=== PATIENT | female | born 1945 | race Caucasian/White ===

== ENCOUNTER → 2018-06-25 | Outpatient (CLI) | payer MEDICARE, OTHER ==
[2018-06-25 14:08] LABS: Source, Urine Clean Catch
[2018-06-25 15:12] LABS: Bilirubin, Urine Neg (Neg); Blood, Urine 1+ (Neg); Glucose Qualitative, Urine Neg (Neg); Ketones, Urine Neg (Neg); Leukocyte Esterase, Urine 1+ (Neg); Nitrite, Urine Neg (Neg); Protein, Urine Neg (Neg); Urobilinogen, Urine 1+ (Normal); pH, Urine 6.5 (5.0-8.0)
[2018-06-25 15:21] LABS: Appearance, Urine Hazy (Clear); Color, Urine Yellow (P-Yellow)
[2018-06-25 15:23] LABS: Amorphous Mod (0-Heavy); Bacteria Few /hpf; Squamous Epithelial Cells Few /hpf (Few)
== END | disposition home or self-care (01) ==
LOC: LAB 09:39 → LAB SHORT 09:39
PROVIDERS: Obstetrics & Gynecology
DX: N39.45 Continuous leakage (principal)
CPT/HCPCS: 81001; 87086

== ENCOUNTER → 2018-08-07 | Outpatient (CLI) | payer MEDICARE, OTHER ==
[2018-08-07 10:42] LABS: Source, Urine Clean Catch
[2018-08-07 12:56] LABS: Bilirubin, Urine Neg (Neg); Blood, Urine 2+ (Neg); Glucose Qualitative, Urine Neg (Neg); Ketones, Urine Neg (Neg); Leukocyte Esterase, Urine 1+ (Neg); Nitrite, Urine Neg (Neg); Protein, Urine 1+ (Neg); Urobilinogen, Urine NORM (Normal)
[2018-08-07 13:19] LABS: Appearance, Urine Clear (Clear); Color, Urine Yellow (P-Yellow)
[2018-08-07 13:20] LABS: Bacteria Rare /hpf; Mucus Light (0-Heavy); Red Blood Cells, Urine 0-2 /hpf (0-2); Squamous Epithelial Cells Rare /hpf (Few); White Blood Cells, Urine 0-2 /hpf (0-5)
== END | disposition home or self-care (01) ==
LOC: LAB SHORT 10:02 → LAB 10:02
PROVIDERS: Obstetrics & Gynecology
DX: N39.45 Continuous leakage (principal)
CPT/HCPCS: 81001; 87086

== ENCOUNTER → 2018-09-22 | Outpatient (CLI) | payer MEDICARE, OTHER ==
[2018-09-22 15:21] LABS: Source, Urine Clean Catch
[2018-09-22 17:02] LABS: Bilirubin, Urine Neg (Neg); Blood, Urine 3+ (Neg); Glucose Qualitative, Urine Neg (Neg); Ketones, Urine Neg (Neg); Leukocyte Esterase, Urine 3+ (Neg); Nitrite, Urine Neg (Neg); Protein, Urine 2+ (Neg); Urobilinogen, Urine 1+ (Normal)
[2018-09-22 17:17] LABS: Appearance, Urine Hazy (Clear); Color, Urine Yellow (P-Yellow)
[2018-09-22 17:18] LABS: Bacteria Many /hpf; Squamous Epithelial Cells Few /hpf (Few); White Blood Cells, Urine TNTC /hpf (0-5)
== END | disposition home or self-care (01) ==
LOC: LAB 11:09 → LAB SHORT 11:09
PROVIDERS: Obstetrics & Gynecology
DX: R31.9 Hematuria, unspecified (principal)
CPT/HCPCS: 81001; 87077; 87086; 87186

== ENCOUNTER 2020-02-02 07:52 | Day surgery (SDC) | payer MEDICARE, OTHER ==
[~2020-02-02] VITALS: Ht 165.1 cm; Wt 89.3 kg
[~2020-02-02 07:52] MED LIST: ALLO100 PO; ASPIR 8181 MG PO; CALCIUM-MAGNES1 EAC9 PO; COENZYME Q10100 MG PO; Dyazide 37.5/251 EA PO; K-Dur10 MEQ PO; NEURONTIN300 MG PO; Norco 5-325 Ta1 EACH PO; OMEPRAZOLE20 M3 PO
--- NOTE | 2020-02-02 08:58 | NUR ---
Ambulatory in Day SurgeryPatient states colon prep results clear. History, Chart, Medications and Allergies reviewed before start of procedure.Lungs clear T/O to Auscultation. Patient confirms NPO status and agrees with scheduled surgery. Pre-Op teaching done. Pt verbalizes understanding. Patient States Post-Procedure ride home has been arranged.
--- NOTE | 2020-02-02 09:49 | NUR ---
02/02/20 0949 Yessenia Molina History, Chart, Medications and Allergies reviewed before start of procedure.Patient confirms NPO status and agrees with scheduled surgery.3-LEAD EKG REVIEWED WITH PHYSICIAN PRIOR TO START OF PROCEDURE.MONITOR INTACT WITH CONTINUOUS PULSE OXIMETRY AND INTERMITTENT BP.O2 VIA N/C INTACT THROUGHOUT SEDATION/PROCEDURE.
--- NOTE | 2020-02-02 11:33 | NUR ---
PT SLEEPY BUT ROUSEABLE ON ARRIVAL FROM SCOPE. PT PROVIDED JUICE. VSS. PT ON RA. PT FULLY AWAKE AND SISTER ENROUTE FOR RIDE HOME. VSS. Ambulatory in Day Surgery Discharge instructions reviewed with patient. Patient verbalizes understanding. Copy given to patient to take home. Patient States Post-Procedure ride home has been arranged. Discharged via wheelchair to private car for ride home.
== END 2020-02-02 22:38 | disposition home or self-care (01) ==
LOC: ORSCMMR 07:52 → ORD 09:30 → ORSCMMR 09:30
PROVIDERS: Internal Medicine Gastroenterology
PROC: 0DBH8ZX Excision of Cecum, Via Natural or Artificial Opening Endoscopic, Diagnostic (ICD-10-PCS; principal; 2020-02-02 09:30)
PROC: 0DBM8ZX Excision of Descending Colon, Via Natural or Artificial Opening Endoscopic, Diagnostic (ICD-10-PCS; principal; 2020-02-02 09:30)
PROC: 0DB78ZX Excision of Stomach, Pylorus, Via Natural or Artificial Opening Endoscopic, Diagnostic (ICD-10-PCS; principal; 2020-02-02 09:30)
PROC: 0DB48ZX Excision of Esophagogastric Junction, Via Natural or Artificial Opening Endoscopic, Diagnostic (ICD-10-PCS; principal; 2020-02-02 09:30)
PROC: 0D758ZZ Dilation of Esophagus, Via Natural or Artificial Opening Endoscopic (ICD-10-PCS; principal; 2020-02-02 09:30)
DX: R13.14 Dysphagia, pharyngoesophageal phase (principal); K29.70 Gastritis, unspecified, without bleeding; Z12.11 Encounter for screening for malignant neoplasm of colon; Z86.010 Personal history of colon polyps; D12.0 Benign neoplasm of cecum; D12.2 Benign neoplasm of ascending colon; D12.4 Benign neoplasm of descending colon; K57.30 Diverticulosis of large intestine without perforation or abscess without bleeding; K21.9 Gastro-esophageal reflux disease without esophagitis; G47.33 Obstructive sleep apnea (adult) (pediatric); Z87.891 Personal history of nicotine dependence; Z79.899 Other long term (current) drug therapy; Z79.82 Long term (current) use of aspirin
CPT/HCPCS: 88305; 88312; 88342; C1726; J2250; J3010; J7120

== ENCOUNTER → 2020-07-19 | Outpatient (CLI) | payer MEDICARE, OTHER | END | disposition home or self-care (01) | LOC: LAB SHORT 15:56 → LAB 15:56 | DX: D03.62 Melanoma in situ of left upper limb, including shoulder (principal) | CPT/HCPCS: 88305 ==

== ENCOUNTER → 2020-08-09 | Outpatient (CLI) | payer MEDICARE, OTHER | END | disposition home or self-care (01) | LOC: LAB 13:30 → LAB SHORT 13:30 | DX: D03.62 Melanoma in situ of left upper limb, including shoulder (principal) | CPT/HCPCS: 88305 ==

== ENCOUNTER → 2020-11-27 | Outpatient (CLI) | payer MEDICARE, OTHER | END | disposition home or self-care (01) | LOC: LAB 11:29 → LAB SHORT 11:29 | DX: D48.5 Neoplasm of uncertain behavior of skin (principal) | CPT/HCPCS: 88305 ==

== ENCOUNTER 2021-03-28 08:15 | Day surgery (SDC) | payer OTHER ==
[~2021-03-28 08:15] MED LIST changes: +ALEVAZOL56.7 G1 TOP; +PSEUDOEPHEDRINE30 M1 PO
--- NOTE | 2021-03-28 10:00 | NUR ---
03/28/21 Erlin Jeong BROUSSARD CATHETER PLACED AT START OF CASE AND REMOVED AT END WITH MINIMAL TO NO OUTPUT. PESSARY REMOVED BY MD AND PLACED IN STERILE WATER AND CONTAINER FOR DURATION OF CASE AND REPLACED BY MD AT END OF CASE.
== END 2021-03-28 11:00 | disposition home or self-care (01) ==
LOC: ORSCMMR 08:15 → ORD 09:30 → ORSCMMR 09:30
PROVIDERS: Obstetrics & Gynecology
PROC: 0UBC8ZX Excision of Cervix, Via Natural or Artificial Opening Endoscopic, Diagnostic (ICD-10-PCS; principal; 2021-03-28 09:30)
PROC: 0UB98ZX Excision of Uterus, Via Natural or Artificial Opening Endoscopic, Diagnostic (ICD-10-PCS; principal; 2021-03-28 09:30)
PROC: 0UDB8ZX Extraction of Endometrium, Via Natural or Artificial Opening Endoscopic, Diagnostic (ICD-10-PCS; principal; 2021-03-28 09:30)
DX: N84.0 Polyp of corpus uteri (principal); N84.1 Polyp of cervix uteri; N95.0 Postmenopausal bleeding; I10 Essential (primary) hypertension; G47.33 Obstructive sleep apnea (adult) (pediatric); Z87.891 Personal history of nicotine dependence; K21.9 Gastro-esophageal reflux disease without esophagitis; Z79.899 Other long term (current) drug therapy; Z79.82 Long term (current) use of aspirin
CPT/HCPCS: 88305; A9270; J1100; J2405; J2704; J3010; J7120

== ENCOUNTER 2023-03-31 06:08 | Day surgery (SDC) | payer OTHER ==
[~2023-03-31] VITALS: Ht 167.6 cm; Wt 89.7 kg
[~2023-03-31 06:08] MED LIST changes: +Lactated Ringer's 1,000 ML IV ONE
[2023-03-31] MEDS ORDERED: Vancomycin HCL 1,000 MG in NS 100 ML IV SCH (06:40)
[2023-03-31] MEDS ORDERED: OxyCODONE HCL 10 MG TABCR PO SCH (06:40)
[2023-03-31] MEDS ORDERED: CeFAZolin Sodium 2,000 MG in NS 50 ML IV SCH (06:40)
[2023-03-31] MEDS ORDERED: NS IV SCH (06:40)
[2023-03-31] MEDS ORDERED: TRANEXAMIC ACID IV SCH (06:40)
[2023-03-31] MEDS ORDERED: CefTRIAXone Sodium 2,000 MG in NS 100 ML IV SCH (06:40)
[2023-03-31] MEDS ORDERED: ROSU5 PO (06:41)
[2023-03-31] MEDS ORDERED: Lactated Ringer's 1,000 ML IV ONE ×2 (06:51→11:12)
[2023-03-31] MEDS ORDERED: EPINEPhrine HCl 1 MG/ML 1ML Amp ONE (07:08)
[2023-03-31] MEDS ORDERED: Ropivacaine 0.5% HCl/Pf 5 MG/ML 20ML VIAL ONE (07:09)
[2023-03-31] MEDS ORDERED: OxyCODONE HCL 10 MG TABCR ONE (07:13)
--- NOTE | 2023-03-31 07:23 | NUR ---
03/31/23 0723 Tonya Ha TIME OUT PERFORMED AT BEDSIDE WITH DR BARTH CONFIRMING PT IS HERE FOR L SHOULDER REPLACEMENT
[2023-03-31] MEDS ORDERED: Midazolam HCl 1MG / ML 2ML Vial ONE (07:27)
[2023-03-31] MEDS ORDERED: propofoL 20 ML IV ONE (07:47)
[2023-03-31] MEDS ORDERED: Rocuronium Bromide 10 MG/ML 5ML Injection IV ONE (07:48)
[2023-03-31] MEDS ORDERED: FentaNYL Citrate 50 MCG/ML 2 ML Injection ONE ×3 (07:48→11:18)
--- NOTE | 2023-03-31 08:30 | NUR ---
03/31/23 0830 Danielle Fernandez 20 MLS ROPIVACAINE 0.5% MIXED AND VERIFIED W/ 0.1ML EPI (1MG/ML), TO MAKE ROPIVACAINE 0.5% W/ EPI 1:200,000.
[2023-03-31] MEDS ORDERED: Dexamethasone Sod Phos 10 MG/ML 1ML VIAL ONE (08:44)
[2023-03-31] MEDS ORDERED: Bupivacaine 0.5% HCl 5 MG/ML 30MLVIAL ONE (08:45)
[2023-03-31] MEDS ORDERED: Ondansetron HCl 2 MG / ML 2ML Vial ONE (08:57)
[2023-03-31] MEDS ORDERED: Sugammadex Sodium 200 MG/2ML SDV (100 MG/ML) ONE (09:45)
--- NOTE | 2023-03-31 10:42 | NUR ---
03/31/23 1042 EVANGELINA PEACOCK PT DENIES: NAUSEA, PAIN, CHILLS. APPEARS COMFORTABLE. TRIAL OFF O2. 100% AT 5L TRIAL. CURRENTLY 95% ON RA
--- NOTE | 2023-03-31 10:54 | NUR ---
03/31/23 1053 EVANGELINA PEACOCK IMAGING HERE FOR XRAY OF LEFT SHOULDER.
[2023-03-31] MEDS ORDERED: HYDROmorphone HCl 2 MG Tab ONE (11:37)
[2023-03-31 11:48] VITALS: BP 143/110
== END 2023-03-31 12:15 | disposition home or self-care (01) ==
LOC: ORSCSDS 06:08
PROVIDERS: Orthopaedic Surgery
PROC: 0RRK00Z Replacement of Left Shoulder Joint with Reverse Ball and Socket Synthetic Substitute, Open Approach (ICD-10-PCS; principal; 2023-03-31 07:30)
DX: M19.012 Primary osteoarthritis, left shoulder (principal); E78.5 Hyperlipidemia, unspecified; G62.9 Polyneuropathy, unspecified; N19 Unspecified kidney failure; Z79.899 Other long term (current) drug therapy; Z87.891 Personal history of nicotine dependence; Z68.33 Body mass index [BMI] 33.0-33.9, adult
CPT/HCPCS: 73030; A9270; C1713; C1776; J0171; J0696; J1100; J2250; J2405; J2704; J2795; J3010; J3370; J7120

== ENCOUNTER → 2023-09-11 | Outpatient (CLI) | payer OTHER ==
[~2023-09-11] MED LIST changes: -Lactated Ringer's 1,000 ML IV ONE; +ROSU5 PO
[2023-09-11 19:52] LABS: Bacterial Vaginosis PCR Negative (NEGATIVE); Candida Group, PCR NOT DETECTED (NOT DETECT); Candida glabrata-krusei, PCR NOT DETECTED (NOT DETECT)
== END ==
LOC: LAB SHORT 13:14 → LAB 13:14
PROVIDERS: Obstetrics & Gynecology
DX: N76.0 Acute vaginitis (principal)
CPT/HCPCS: 87481; 87661; 87801

== ENCOUNTER → 2024-07-01 | Outpatient (CLI) | payer OTHER ==
[2024-07-01 19:33] LABS: Bacterial Vaginosis PCR Negative (NEGATIVE); Candida Group, PCR NOT DETECTED (NOT DETECT); Candida glabrata-krusei, PCR NOT DETECTED (NOT DETECT)
== END ==
LOC: LAB 17:10 → LAB SHORT 17:10
PROVIDERS: Obstetrics & Gynecology
DX: N76.0 Acute vaginitis (principal)
CPT/HCPCS: 81515